=== PATIENT | female | born 1985 | race Caucasian/White ===

== ENCOUNTER 2018-07-01 05:20 | Emergency (ER) | payer SELFPAY ==
[~2018-07-01] VITALS: Ht 152.4 cm; Wt 49.9 kg
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
--- NOTE | 2018-07-01 06:35 | NUR ---
SEEN AND EXAMINED BY DR. LAYNE. AWAITING ORDERS.
--- NOTE | 2018-07-01 06:50 | NUR ---
LABS AND EKG DRAWN. URINE SPECIMEN COLLECTED.
[2018-07-01 07:12] LABS: BASOPHILS % (AUTO) 0.3 % (0.0-2.0); HEMATOCRIT 39 % (33-45); HEMOGLOBIN 13.2 g/dL (11.5-14.8); LYMPHOCYTES # (AUTO) 1.4 /CMM (0.8-4.8); LYMPHOCYTES % (AUTO) 18.1 % (20.0-44.0); MEAN CORPUSCULAR HGB CONC 34 g/dl (31.0-36.0); MEAN CORPUSCULAR VOLUME 91 fL (82-100); MONOCYTES # (AUTO) 0.8 /CMM (0.1-1.30); MONOCYTES % (AUTO) 10.8 % (2.0-12.0); NEUTROPHILS # (AUTO) 5.1 /CMM (1.8-8.9); NEUTROPHILS % (AUTO) 67.8 % (43.0-81.0); PLATELET COUNT (AUTO) 226 /CMM (150-450); RED BLOOD CELL COUNT(AUTO) 4.29 MIL/uL (4.0-5.2); WHITE BLOOD COUNT (AUTO) 7.5 K/uL (4.3-11.0)
[2018-07-01 07:14] LABS: APPEARANCE,URINE CLEAR (CLEAR); BILIRUBIN,URINE NEGATIVE (NEGATIVE); BLOOD, URINE TRACE-INTA Ery/uL (NEGATIVE); COLOR,URINE YELLOW (YELLOW); KETONES,URINE NEGATIVE (NEGATIVE); LEUKOCYTE ESTERASE ,URINE NEGATIVE (NEGATIVE); NITRITE, URINE NEGATIVE (NEGATIVE); PROTEIN,URINE NEGATIVE (NEGATIVE); UGLUCOSE NEGATIVE (NEGATIVE); UROBILINOGEN,URINE 0.2 EU/dL (0.2)
[2018-07-01 07:22] LABS: CALCIUM, SERUM 8.7 mg/dL (8.5-10.1); CARBON DIOXIDE 23 mmol/L (21-32); CHLORIDE 104 mmol/L (98-107); CREATININE 0.6 mg/dL (0.6-1.3); GLUCOSE 93 mg/dL (74-106); POTASSIUM 3.9 mmol/L (3.5-5.1); SODIUM SERUM 136 mmol/L (136-145); UREA NITROGEN, BLOOD 15 mg/dL (7-18)
[2018-07-01 07:23] LABS: BACTERIA,URINE None seen /HPF (None Seen); RBC,URINE 0-2 /HPF (0-2); SQUAMOUS EPITHELIAL CELL,UR Few /HPF (None Seen); WBC,URINE NONE SEEN /HPF (0-3)
[2018-07-01 07:27] LABS: ALANINE AMINOTRANSFERASE 11 U/L (12-78); ALBUMIN 3.4 g/dL (3.4-5.0); ALKALINE PHOSPHATASE 60 U/L (46-116); ASPARTATE AMINOTRANSFERASE 14 U/L (15-37); BILIRUBIN,TOTAL 0.2 mg/dL (0.2-1.0); TOTAL PROTEIN, SERUM 6.9 g/dL (6.4-8.2)
[2018-07-01] MEDS ORDERED: IBUPROFEN 600 MG TABLET PO ONE ×2 (07:59→08:00)
[2018-07-01 08:22] VITALS: BP 110/60
--- NOTE | 2018-07-01 08:23 | NUR ---
Patient discharged to home in stable condition. Written and verbal after care instructions given. Patient verbalizes understanding of instruction.
== END 2018-07-01 08:23 | disposition home or self-care (01) ==
LOC: ER 05:28
DX: S20.212A Contusion of left front wall of thorax, initial encounter (principal); S40.012A Contusion of left shoulder, initial encounter; S09.8XXA Other specified injuries of head, initial encounter; R06.00 Dyspnea, unspecified; F90.9 Attention-deficit hyperactivity disorder, unspecified type; W18.39XA Other fall on same level, initial encounter; Y93.39 Activity, other involving climbing, rappelling and jumping off; Y92.89 Other specified places as the place of occurrence of the external cause; Y99.8 Other external cause status
CPT/HCPCS: 36415; 71100; 73010; 80053; 81001; 84484; 84703; 85025; 93005; 99284; A4606; Z7610; 81000-TC

== ENCOUNTER 2021-02-11 09:44 | Emergency (ER) | payer OTHER ==
[~2021-02-11] VITALS: Ht 154.9 cm; Wt 51.7 kg
[2021-02-11 10:05] VITALS: BP 118/70
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
--- NOTE | 2021-02-11 11:33 | NUR ---
BACK FROM RADIOLOGY
[2021-02-11] MEDS ORDERED: IBUP-1957 PO (12:07)
--- NOTE | 2021-02-11 12:17 | NUR ---
Patient discharged to home in stable condition. Written and verbal after care instructions given. Patient verbalizes understanding of instruction.
== END 2021-02-11 12:18 | disposition home or self-care (01) ==
LOC: ER 09:47
DX: S13.4XXA Sprain of ligaments of cervical spine, initial encounter (principal); S93.491A Sprain of other ligament of right ankle, initial encounter; S20.211A Contusion of right front wall of thorax, initial encounter; Z60.2 Problems related to living alone; V49.59XA Passenger injured in collision with other motor vehicles in traffic accident, initial encounter; Y93.89 Activity, other specified; Y92.413 State road as the place of occurrence of the external cause; Y99.8 Other external cause status
CPT/HCPCS: 71250-TC; 72125-TC; 73610-TC

== ENCOUNTER 2021-12-16 16:14 | Emergency (ER) | payer BC ==
[~2021-12-16] VITALS: Ht 154.9 cm; Wt 52.2 kg
[~2021-12-16 16:14] MED LIST: IBUP-1957 PO
[2021-12-16 16:27] VITALS: BP 109/75
[2021-12-16] MEDS ORDERED: ONDANSETRON 4 MG TAB.RAPDIS PO ONE (17:00)
[2021-12-16] MEDS ORDERED: KETOROLAC TROMETHAMINE INJ 60 MG/2 ML VIAL IM ONE (17:00)
[2021-12-16] MEDS ORDERED: ONDANSETRON 4 MG TAB.RAPDIS ONE (17:15)
[2021-12-16] MEDS ORDERED: KETOROLAC TROMETHAMINE INJ 30 MG/ML VIAL ONE (17:15)
--- NOTE | 2021-12-16 17:19 | NUR ---
RAPID INFLUENZA DONE AND SENT TO LAB
--- NOTE | 2021-12-16 17:29 | NUR ---
PCR SWAB DONE AND SENT TO LAB
[2021-12-16] MEDS ORDERED: IBUP-1955 PO (17:36)
[2021-12-16] MEDS ORDERED: GUAI5LIQ10 PO (17:36)
[2021-12-16] MEDS ORDERED: IV NS 0.9% 1,000 ML BAG IV ONE (18:00)
--- NOTE | 2021-12-17 17:26 | NUR ---
PHONE NUMBER ON FILE CALLED, LEFT A MESSAGE TO CALL BACK FOR RESULT OF COVID TEST
--- NOTE | 2021-12-18 13:59 | NUR ---
PATIENT INFORMED AND ACKNOWLEDGED COVID POSITIVE RESULT
== END 2021-12-16 17:45 | disposition home or self-care (01) ==
LOC: ER 16:19
DX: U07.1 COVID-19 (principal); R52 Pain, unspecified; R51.9 Headache, unspecified; E03.9 Hypothyroidism, unspecified; Z85.850 Personal history of malignant neoplasm of thyroid
CPT/HCPCS: 99284; 71045; 96372; 87804; U0003; J1885; Q0162; C9803

== ENCOUNTER 2024-10-31 07:11 | Inpatient (IN) | payer BC ==
[~2024-10-31] VITALS: Ht 152.4 cm; Wt 58.5 kg
[~2024-10-31 07:11] MED LIST changes: +GUAI5LIQ10 PO; +IBUP-1955 PO
[2024-10-31] MEDS ORDERED: ONDANSETRON HCL/PF 4 MG/2 ML VIAL ONE (07:58)
[2024-10-31] MEDS: IV NS 0.9% 1,000 ML BAG IV ONE (08:00)
[2024-10-31 08:02] LABS: BASOPHILS % (AUTO) 0.1 % (0.0-2.0); EOSINOPHILS % (AUTO) 0.1 % (0.0-6.0); HEMATOCRIT 41 % (33-45); HEMOGLOBIN 13.7 g/dL (11.5-14.8); LYMPHOCYTES % (AUTO) 8.1 % (20.0-44.0); MEAN CORPUSCULAR HEMOGLOBIN 29 PG (26.0-33.0); MEAN CORPUSCULAR HGB CONC 34 g/dl (31.0-36.0); MEAN CORPUSCULAR VOLUME 87 fL (82-100); MONOCYTES % (AUTO) 4.2 % (2.0-12.0); NEUTROPHILS % (AUTO) 87.5 % (43.0-81.0); PLATELET COUNT (AUTO) 262 K/uL (150-450); RED BLOOD CELL COUNT(AUTO) 4.67 MIL/uL (4.0-5.2); RED CELL DISTRIBUTION WIDTH 12.9 % (11.5-15.0); WHITE BLOOD COUNT (AUTO) 10.6 K/uL (4.3-11.0)
[2024-10-31 08:03] LABS: LYMPHOCYTES # (AUTO) 0.9 K/uL (0.8-4.8); MONOCYTES # (AUTO) 0.4 K/uL (0.1-1.30); NEUTROPHILS # (AUTO) 9.3 K/uL (1.8-8.9)
[2024-10-31] MEDS: ONDANSETRON HCL/PF 4 MG/2 ML VIAL IVP ONE (08:03)
[2024-10-31 08:05] LABS: PREGNANCY TEST URINE QUAL NEGATIVE (NEGATIVE)
[2024-10-31 08:14] LABS: CALCIUM, SERUM 8.6 mg/dL (8.5-10.1); CREATININE 0.7 mg/dL (0.6-1.3); POTASSIUM 3.5 mmol/L (3.5-5.1)
[2024-10-31 08:20] LABS: ALBUMIN 3.7 g/dL (3.4-5.0); BILIRUBIN,DIRECT 0.1 mg/dL (0.0-0.2); BILIRUBIN,TOTAL 0.7 mg/dL (0.2-1.0); TOTAL PROTEIN, SERUM 7.6 g/dL (6.4-8.2)
[2024-10-31] MEDS ORDERED: IV NS 0.9% 0 ML IV ONE (08:25)
[2024-10-31] MEDS ORDERED: IOHEXOL-300 100 ML VIAL IV ONE (08:25)
[2024-10-31] MEDS ORDERED: KETOROLAC TROMETHAMINE INJ 30 MG/ML VIAL ONE (08:35)
[2024-10-31] MEDS: KETOROLAC TROMETHAMINE 15 MG/ML VIAL IV ONE (08:40)
[2024-10-31] MEDS ORDERED: PIPERACI/TAZO 3.375GM/D5W 50ML PB IV ONE (11:30)
[2024-10-31] MEDS: PIPERACILLIN /TAZOBACTAM 3.375 G in IV D5W 50 ML IV ONE (11:35)
[2024-10-31] MEDS ORDERED: DEXT10TA18 PO (11:54)
[2024-10-31] MEDS ORDERED: LIOT5TAB7 PO (11:54)
[2024-10-31] MEDS ORDERED: LEVO75CA2 PO (11:54)
[2024-10-31] MEDS ORDERED: SEMA0.25 SQ (11:54)
[2024-10-31] MEDS: ENOXAPARIN SODIUM 40 MG/0.4 ML DISP.SYRIN SQ SCH (14:30)
[2024-10-31] MEDS ORDERED: ACETAMINOPHEN 325 MG TABLET PO PRN (14:30)
[2024-10-31] MEDS ORDERED: ENOXAPARIN SODIUM 40 MG/0.4 ML DISP.SYRIN SQ SCH (14:30)
[2024-10-31] MEDS ORDERED: MORPHINE SULFATE INJ 4 MG/ML DISP.SYRIN IV PRN (14:30)
[2024-10-31] MEDS: IV D5 LR 1,000 ML IV PRN (15:12)
[2024-10-31 16:00] VITALS: BP 101/62; TEMP 98.1; O2SAT 100
[2024-10-31] MEDS: MORPHINE SULFATE INJ 4 MG/ML DISP.SYRIN IV PRN (18:19)
[2024-10-31 20:00] VITALS: BP 101/60; TEMP 98.4; O2SAT 97
[2024-10-31] MEDS ORDERED: PIPERACILLIN /TAZOBACTAM 3.375 G in IV D5W 50 ML IV SCH (21:00)
[2024-10-31] MEDS: PIPERACILLIN /TAZOBACTAM 3.375 G in IV D5W 100 ML IV SCH (21:01)
[2024-11-01] MEDS: HYDROMORPHONE 1 MG/1 ML DISP.SYRIN IV PRN (00:05)
[2024-11-01 06:44] LABS: BASOPHILS % (AUTO) 0.4 % (0.0-2.0); EOSINOPHILS # (AUTO) 0.1 K/uL (0.0-0.7); EOSINOPHILS % (AUTO) 2.2 % (0.0-6.0); HEMATOCRIT 38 % (33-45); HEMOGLOBIN 12.4 g/dL (11.5-14.8); LYMPHOCYTES # (AUTO) 1.5 K/uL (0.8-4.8); LYMPHOCYTES % (AUTO) 25.9 % (20.0-44.0); MEAN CORPUSCULAR HEMOGLOBIN 29 PG (26.0-33.0); MEAN CORPUSCULAR HGB CONC 33 g/dl (31.0-36.0); MEAN CORPUSCULAR VOLUME 88 fL (82-100); MONOCYTES # (AUTO) 0.6 K/uL (0.1-1.30); MONOCYTES % (AUTO) 10.4 % (2.0-12.0); NEUTROPHILS # (AUTO) 3.6 K/uL (1.8-8.9); NEUTROPHILS % (AUTO) 61.1 % (43.0-81.0); PLATELET COUNT (AUTO) 215 K/uL (150-450); RED BLOOD CELL COUNT(AUTO) 4.33 MIL/uL (4.0-5.2); RED CELL DISTRIBUTION WIDTH 12.9 % (11.5-15.0); WHITE BLOOD COUNT (AUTO) 5.9 K/uL (4.3-11.0)
[2024-11-01 07:22] LABS: CALCIUM, SERUM 7.5 mg/dL (8.5-10.1); CREATININE 0.7 mg/dL (0.6-1.3); MAGNESIUM 1.7 mg/dL (1.8-2.4); POTASSIUM 3.5 mmol/L (3.5-5.1)
[2024-11-01 08:00] VITALS: BP 105/58; TEMP 98.2; O2SAT 99
[2024-11-01] MEDS: PANTOPRAZOLE 40 MG VIAL IV SCH (08:11)
[2024-11-01] MEDS: Magnesium 1GM/D5W 100ML PREMIX 100 ML IV SCH (09:26)
[2024-11-01] MEDS: LEVOTHYROXINE INJ 100 MCG VIAL IV SCH (11:26)
[2024-11-01] MEDS: ONDANSETRON HCL/PF 4 MG/2 ML VIAL IVP PRN (12:57)
[2024-11-01] MEDS ORDERED: AMOX-430 PO (16:34)
[2024-11-01] MEDS ORDERED: HYDR-3972 PO (16:34)
[2024-11-01] MEDS ORDERED: ONDA4TAB5 PO (16:34)
== END 2024-11-01 17:45 | disposition home or self-care (01) | DRG 395 ==
LOC: ER 07:14 → MED 13:02
PROVIDERS: ADMIT Nurse Practitioner Acute Care; ATTEND Nurse Practitioner Acute Care
DX: K35.80 Unspecified acute appendicitis (principal); Z85.850 Personal history of malignant neoplasm of thyroid; E89.0 Postprocedural hypothyroidism; Z79.85 Long-term (current) use of injectable non-insulin antidiabetic drugs
CPT/HCPCS: 36415; 80048-TC; 80076-TC; 83690-TC; 83735-TC; 84100-TC; 84443-TC; 84703-TC; 85025-TC; A4223; G0378; J1171; J1885; J2270; J2405; J2470; J2543; J3475; J3490; J7030; J7050; J7060; Q9967